=== PATIENT | male | born 1965 | race Hispanic/Latino ===

== ENCOUNTER 2018-09-04 09:27 | Emergency (ER) | payer MEDICAID, OTHER ==
[2018-09-04 09:41] VITALS: BMI 21.1
[2018-09-04 09:51] VITALS: RESP 18; TEMP 97.6
--- NOTE | 2018-09-04 10:01 | ED PDOC ---
Arrival/HPI - General Chief Complaint: Eye Problem Time Seen by Provider: 09/04/18 09:35 Historian: Patient - History of Present Illness Narrative History of Present Illness (Text): 09/04/18 10:01 53yr old male brought in by ambulance after being unable to make it to his scheduled appointment with the eye doctor. pt states he received a taxi voucher to Dr. Dupont's office today. He arrived at 9 AM to find that the office was closed. He then went to [facility]. From [facility] and ambulance was called as the patient is homeless and had nowhere to go or no way to get back to [place]. Patient denies chest pain or shortness of breath. Denies fevers or chills. Patient states he's been having an eye problem for a long time and is being followed by Dr. Dupont. Patient denies dizziness or weakness. Patient states he has a walker but he did not bring it with him. Past Medical History - Provider Review Nursing Documentation Reviewed: Yes - Infectious Disease Hx of Infectious Diseases: None - Tetanus Immunization Tetanus Immunization: Up to Date - Cardiac Hx Congestive Heart Failure: No Hx Hypertension: Yes - Pulmonary Hx Pneumonia: Yes - Neurological Hx Seizures: Yes - HEENT Hx HEENT Disorder: No - Renal Hx Renal Disorder: No - Endocrine/Metabolic Hx Endocrine Disorders: No - Hematological/Oncological Hx Anemia: Yes - Integumentary Hx Dermatological Disorder: No - Musculoskeletal/Rheumatological Hx Fractures: No - Gastrointestinal Hx Gall Bladder Disease: Yes (Cholelithiasis) Hx Gastritis: Yes Hx Pancreatitis: Yes - Genitourinary/Gynecological Hx Sexually Transmitted Diseases: No - Psychiatric Hx Anxiety: Yes Hx Substance Use: No - Surgical History Other/Comment: left pinky - Anesthesia Hx Anesthesia: Yes Hx Anesthesia Reactions: No Hx Malignant Hyperthermia: No - Suicidal Assessment Feels Threatened In Home Enviroment: No Family/Social History Family/Social History: No Known Family HX Smoking Status: Current Some Days Smoker Hx Alcohol Use: Yes Hx Substance Use: No Allergies/Home Meds Allergies/Adverse Reactions: Allergies aspirin Adverse Reaction (Verified 09/03/18 19:23) GI Bleed ibuprofen [From Motrin] Adverse Reaction (Verified 09/03/18 19:23) GI Bleed naproxen Adverse Reaction (Verified 09/03/18 19:23) GI bleed NSAIDS (Non-Steroidal Anti-Inflamma Adverse Reaction (Verified 09/03/18 19:23) GI bleed Home Medications: Home Meds Medication Instructions Recorded Confirmed Levetiracetam [Keppra] 500 mg PO Q12 07/07/18 09/01/18 Review of Systems - Review of Systems Constitutional: absent: Fatigue, Fevers Eyes: Vision Changes, Eye Pain, Other (corneal ulcer) Respiratory: absent: SOB, Cough Cardiovascular: absent: Chest Pain, Palpitations Gastrointestinal: absent: Abdominal Pain, Nausea, Vomiting Musculoskeletal: absent: Arthralgias Skin: absent: Rash, Pruritis Neurological: absent: Headache, Dizziness Psychiatric: absent: Anxiety, Depression, Suicidal Ideation Physical Exam Vital Signs Reviewed: Yes Vital Signs Temp Pulse Resp BP Pulse Ox 09/04/18 09:50 97.6 F 73 18 148/72 99 Temperature: Afebrile Blood Pressure: Normal Pulse: Regular Respiratory Rate: Normal Appearance: Positive for: Well-Appearing, Non-Toxic, Comfortable, Unkept Pain Distress: None Mental Status: Positive for: Alert and Oriented X 3 - Systems Exam Head: Present: Atraumatic Extroacular Muscles: Present: EOMI Conjunctiva: Present: Injected (right conjunctival injection; corneal ulcer noted to the right eye with antibiotic contact lens in place. ) Mouth: Present: Moist Mucous Membranes Respiratory/Chest: Present: Clear to Auscultation Cardiovascular: Present: Regular Rate and Rhythm Abdomen: No: Tenderness Upper Extremity: Present: Normal ROM Lower Extremity: Present: Normal ROM Neurological: Present: GCS=15, Speech Normal, Other (ambulates with slow steady gait) Skin: Present: Warm, Dry Psychiatric: Present: Alert, Oriented x 3 Medical Decision Making ED Course and Treatment: 09/04/18 10:07 53yr old homeless male - arrived to eye doctors office prior to office opening. Spoke with dr. Skaggs office. Pt was scheduled for 10am. They will wait for patient. raymon transfer patient via taxi voucher to Dr. Dupont's office for evaluation of his corneal ulcer. cane was given for assisted ambulation as patient currently does not have his walker with him. Pt is ambulating with steady gait in emergency room WITHOUT cane. pt verbalized understanding of follow up with dr. dupont today in the office. aware that he will received taxi voucher directly to dr. skaggs office to be seen. impression; corneal ulcer go directly to dr. skaggs office Disposition/Present on Arrival - Present on Arrival Any Indicators Present on Arrival: No History of DVT/PE: No History of Uncontrolled Diabetes: No Urinary Catheter: No History of Decub. Ulcer: No History Surgical Site Infection Following: None - Disposition Have Diagnosis and Disposition been Completed?: Yes Diagnosis: Corneal ulcer Disposition: HOME/ ROUTINE Disposition Time: 10:00 Patient Plan: Discharge Condition: GOOD Discharge Instructions (ExitCare): Corneal Ulcer (DC) Additional Instructions: GO DIRECTLY TO DR. SKAGGS OFFICE Referrals: Filippo Dupont MD [Staff Provider] - Follow up with primary Forms: [employer] (Vietnamese)
[2018-09-04 10:16] VITALS: BP 139/76; PULSE 69; O2SAT 98
== END 2018-09-04 10:16 | disposition home or self-care (01) ==
LOC: ED 09:27
DX: H16.001 Unspecified corneal ulcer, right eye (principal); I10 Essential (primary) hypertension; Z59.0 Homelessness